=== PATIENT | female | born 1960 | race Caucasian/White ===

== ENCOUNTER → 2020-10-08 | Outpatient (CLI) | payer OTHER ==
[~2020-10-08] MED LIST: ADVAIR 500-501 EACH INH; ATROVENT INH S2.5 ML INH; BENADRYL 50MG C50 MG PO; FLEXERIL 10 MG10 MG PO; HUMALOG100 UNIT/1 SQ; IPRAT-ALBUT 0.5-3 ML INH; JANUMET 50-1,01 EACH PO; LANTUS100 UNIT/1 SQ; LASIX20 MG PO; LEVEMIR FL100 UNIT/1 SQ; LORTAB 10-3251 EACH PO; LOSARTAN-HCTZ1 EAC2 PO; LYRICA200 MG PO; METHENAMINE HIPP1 GM PO; OMEPRAZOLE40 MG PO; PHENERGAN 25 MG25 M1 PO; PHENOBARBITAL30 MG PO; PHENOBARBITAL32.4 MG PO; PROAIR HFA8.5 GM INH; REQUIP2 MG PO; SINEMET 25/100 T1 EA PO; VALIUM 5 MG TAB5 MG PO
== END ==
LOC: KOH-I 13:30
DX: Z87.891 Personal history of nicotine dependence (principal)
CPT/HCPCS: 71271